=== PATIENT | female | born 1985 | race Caucasian/White ===

== ENCOUNTER 2017-11-24 10:20 | Inpatient (IN) | payer OTHER ==
[2017-11-21 17:58] LABS: ADD MAN DIFF? NO
[2017-11-21 18:00] LABS: BASOPHILS % 0.4 % (0.0-2.0); EOSINOPHILS # 0.2 10^3/ul (0.0-0.5); EOSINOPHILS % 1.6 % (0.0-7.0); HEMATOCRIT 38.8 % (37.0-47.0); LYMPHOCYTES # 2.1 10^3/ul (0.8-2.9); LYMPHOCYTES % 21.9 % (15.0-51.0); MEAN CORPUSCULAR HGB CONC 33.5 g/dl (32.0-37.0); MEAN CORPUSCULAR VOLUME 98.5 fl (82.0-101.0); MEAN PLATELET VOLUME 11.4 fl (7.4-10.4); MONOCYTE # 0.6 10^3/ul (0.3-0.9); MONOCYTES % 6.3 % (0.0-11.0); NEUTROPHIL # 6.8 10^3/ul (1.6-7.5); NEUTROPHILS % 69.6 % (39.0-77.0); PLATELET COUNT 281 10^3/UL (140-415); RED BLOOD COUNT 3.94 10^6/ul (4.20-5.40); RED CELL DISTRIBUTION WIDTH 11.9 % (11.5-14.5)
[2017-11-21 18:00] LABS: WHITE BLOOD COUNT 9.7 10^3/ul (4.8-10.8)
[2017-11-21 18:05] LABS: ADD UMIC YES; UR ASCORBIC ACID NEGATIVE (NEGATIVE); UR BACTERIA FEW /HPF (NONE SEEN); UR BILIRUBIN (Dip) NEGATIVE (NEGATIVE); UR BLOOD (Dip) 1+ mg/dL (NEGATIVE); UR CLARITY SLIGHTLY CLOUDY (CLEAR); UR COLOR YELLOW (YELLOW); UR GLUCOSE (Dip) NEGATIVE (NEGATIVE); UR KETONES (Dip) NEGATIVE (NEGATIVE); UR LEUKOCYTE ESTERASE (Dip) 2+ Leu/ul (NEGATIVE); UR NITRITE (Dip) NEGATIVE (NEGATIVE); UR RBC 9 /HPF (0-5); UR SPECIFIC GRAVITY (Dip) 1.012 (1.003-1.030); UR SQUAMOUS EPITHELIAL CELL MODERATE /HPF (FEW); UR TOTAL PROTEIN (Dip) NEGATIVE (NEGATIVE); UR UROBILINOGEN (Dip) NEGATIVE (NEGATIVE); UR WBC 6 /HPF (0-5)
[2017-11-21 18:16] LABS: ALANINE AMINOTRANSFERASE 37 IU/L (13-69); ALBUMIN 4.4 g/dl (3.3-4.9); ALBUMIN/GLOBULIN RATIO 1.33; ALKALINE PHOSPHATASE 80 IU/L (42-121); ANION GAP 12 (8-16); ASPARTATE AMINO TRANSFERASE 29 IU/L (15-46); BILIRUBIN,INDIRECT 0.2 mg/dl (0-1.1); BILIRUBIN,TOTAL 0.2 mg/dl (0.2-1.3); BLOOD UREA NITROGEN 12 mg/dl (7-20); CALCIUM 9.3 mg/dl (8.4-10.2); CARBON DIOXIDE 27 mmol/L (21-31); CHLORIDE 106 mmol/L (97-110); CREATININE 0.64 mg/dl (0.44-1.00); GLUCOSE 91 mg/dl (70-220); POTASSIUM 4.1 mmol/L (3.5-5.1); SODIUM 141 mmol/L (135-144); TOTAL PROTEIN 7.7 g/dl (6.1-8.1)
[2017-11-21 18:20] LABS: INR 1.03; PROTIME 13.6 Sec (11.9-14.9); PT RATIO 1.1
[2017-11-21 18:21] LABS: PARTIAL THROMBOPLASTIN TIME 32.2 Sec (25.0-35.0)
[2017-11-24] MEDS: LACTATED RINGER'S 1,000 ML IV ×4 (12:18→21:00)
[2017-11-24] MEDS ORDERED: MIDAZOLAM 1 MG/ML 2 ML INJ (13:11)
[2017-11-24] MEDS ORDERED: morphine SULFATE/PF (10 MG/10 ML) INJ ×2 (13:11→15:18)
[2017-11-24] MEDS ORDERED: BUPIVACAINE 0.75%/DEXT (SPINAL) 2 ML INJ (13:19)
[2017-11-24] MEDS ORDERED: LIDOCAINE 2% (SDV) 5 ML INJ (15:21)
[2017-11-24] MEDS ORDERED: ONDANSETRON 4 MG INJ (15:21)
[2017-11-24] MEDS ORDERED: NEOSTIGMINE 3 MG/3 ML SYRINGE (15:21)
[2017-11-24] MEDS ORDERED: PROPOFOL 20 ML (15:21)
[2017-11-24] MEDS ORDERED: METOCLOPRAMIDE 10 MG INJ (15:21)
[2017-11-24] MEDS ORDERED: ROCURONIUM 50 MG INJ (15:21)
[2017-11-24] MEDS ORDERED: GLYCOPYRROLATE 0.4 MG INJ (15:21)
[2017-11-24] MEDS ORDERED: CEFAZOLIN 1 GM INJ (15:23)
[2017-11-24] MEDS ORDERED: morphine 2 MG INJ IV (16:00)
[2017-11-24] MEDS ORDERED: METOCLOPRAMIDE 10 MG INJ IV (16:00)
[2017-11-24] MEDS ORDERED: NALOXONE (0.4 MG/ML) INJ IV (16:00)
[2017-11-24] MEDS ORDERED: ONDANSETRON 4 MG INJ IV ×2 (16:00)
[2017-11-24] MEDS ORDERED: DIPHENHYDRAMINE 50 MG INJ IV (16:00)
[2017-11-24] MEDS ORDERED: MEPERIDINE 25 MG INJ IV (16:00)
[2017-11-24] MEDS ORDERED: HYDROmorphONE 1 MG/5 ML IV SYRINGE IV ×2 (16:00)
[2017-11-24] MEDS ORDERED: FENTAnyl 50 MCG/ML VIAL IV (16:00)
[2017-11-25] MEDS: OXYCODONE/ACETAMINOPHEN (5/325) TAB PO ×3 (01:19→15:43)
[2017-11-25] MEDS ORDERED: DIPHENHYDRAMINE 50 MG INJ IM (01:30)
[2017-11-25] MEDS: DIPHENHYDRAMINE 25 MG CAP PO (01:54)
[2017-11-25] MEDS: IBUPROFEN 600 MG TAB PO (03:05)
[2017-11-25 05:47] LABS: ADD MAN DIFF? NO
[2017-11-25 05:50] LABS: WHITE BLOOD COUNT 9.7 10^3/ul (4.8-10.8)
[2017-11-25 05:50] LABS: BASOPHILS % 0.2 % (0.0-2.0); EOSINOPHILS % 0.4 % (0.0-7.0); HEMATOCRIT 35.6 % (37.0-47.0); HEMOGLOBIN 11.6 g/dl (12.0-16.0); LYMPHOCYTES # 1.4 10^3/ul (0.8-2.9); LYMPHOCYTES % 14.8 % (15.0-51.0); MEAN CORPUSCULAR HEMOGLOBIN 32.7 pg (29.0-33.0); MEAN CORPUSCULAR HGB CONC 32.6 g/dl (32.0-37.0); MEAN CORPUSCULAR VOLUME 100.3 fl (82.0-101.0); MEAN PLATELET VOLUME 12.1 fl (7.4-10.4); MONOCYTE # 0.6 10^3/ul (0.3-0.9); MONOCYTES % 6.5 % (0.0-11.0); NEUTROPHIL # 7.5 10^3/ul (1.6-7.5); NEUTROPHILS % 77.8 % (39.0-77.0); PLATELET COUNT 227 10^3/UL (140-415); RED BLOOD COUNT 3.55 10^6/ul (4.20-5.40); RED CELL DISTRIBUTION WIDTH 11.9 % (11.5-14.5)
[2017-11-25] MEDS: LACTATED RINGER'S 1,000 ML IV ×6 (06:02→18:23)
[2017-11-25] MEDS: KETOROLAC 30 MG INJ IV ×2 (16:29→22:30)
[2017-11-25] MEDS: IBUPROFEN 800 MG TAB PO (18:21)
[2017-11-25] MEDS: CEFAZOLIN 2 GM/50 ML (PMX) 50 ML IVPB (19:35)
[2017-11-25] MEDS ORDERED: morphine LIQ (10 MG/5 ML) CUP PO (21:00)
[2017-11-26] MEDS: IBUPROFEN 800 MG TAB PO ×4 (00:03→18:04)
[2017-11-26] MEDS: LACTATED RINGER'S 1,000 ML IV ×2 (04:34→16:00)
== END 2017-11-26 19:25 | disposition home or self-care (01) | DRG 741 ==
LOC: REC 10:20 → MS1 20:33
PROC: 0UT90ZZ Resection of Uterus, Open Approach (ICD-10-PCS; principal; 2017-11-24 12:30)
PROC: 0UT70ZZ Resection of Bilateral Fallopian Tubes, Open Approach (ICD-10-PCS; 2017-11-24 12:30)
DX: D06.9 Carcinoma in situ of cervix, unspecified (principal)
CPT/HCPCS: 80053; 81001; 84703; 85025; 85610; 85730; 86850; 86900; 86901; 87086